=== PATIENT | male | born 1965 | race African-American/Black ===

== ENCOUNTER 2021-01-10 07:14 | Inpatient (IN) | payer OTHER ==
[~2021-01-10] VITALS: Ht 177.8 cm; Wt 96.3 kg
[2021-01-10] MEDS ORDERED: IV NORMAL SALINE 1000ML BAG 1,000 ML IV ONE ×2 (07:30→09:15)
[2021-01-10 07:43] LABS: BASO % 1 % (0-3); EOS # 0.1 x10^3/uL (0.0-0.7); EOS % 2 % (0-3); HEMATOCRIT 48.1 % (39.0-53.0); HEMOGLOBIN 16.2 g/dL (13.0-17.5); LYMPH # 1.4 x10^3/uL (1.0-4.8); LYMPH % 32 % (24-48); MEAN CORPUSCULAR HEMOGLOBIN 29 pg (25-35); MEAN CORPUSCULAR HGB CONC 34 g/dL (31-37); MEAN CORPUSCULAR VOLUME 87 fL (79-100); MONO # 0.6 x10^3/uL (0.0-1.1); MONO % 13 % (0-9); NEUT # 2.3 x10^3/uL (1.8-7.7); NEUT % 53 % (31-73); PLATELET COUNT 227 x10^3/uL (140-400); RED BLOOD COUNT 5.54 x10^6/uL (4.30-5.70); RED CELL DISTRIBUTION WIDTH 14.4 % (11.5-14.5); WHITE BLOOD COUNT 4.3 x10^3/uL (4.0-11.0)
--- NOTE | 2021-01-10 07:52 | PHYS DOC ---
Past Medical History Additional Past Medical Histor: spontaneous pneumonthorax Past Surgical History: Other Additional Past Surgical Histo: hernia repair, chest tube insertion Smoking Status: Never Smoker Alcohol Use: Occasionally General Adult EDM: Chief Complaint: ABNORMAL LABS HPI: HPI: 55-year-old male presents to the emergency department with abnormal lab work. I received a call from Dr. Killian, the patient's primary care physician, that the patient had abnormally elevated creatinine kinase. Per report, the patient has been taking statins at home as prescribed for a long period of time. He does not have any other symptoms that he complains about today. Reportedly the patient had a lab draw a few days ago that was elevated and had a repeat blood draw that was also elevated greater than 20,000. He does admit that he has been taking a supplement for the past 1.5 months from [facility]. The patient denies nausea, vomiting, fever, chills, chest pain, shortness of breath, abdominal pain, urinary symptoms, cough, recent trauma, or any other complaints. Review of Systems: Review of Systems: Constitutional: Denies fever or chills. Eyes: Denies change in vision, pain. HENT: Denies congestion or sore throat. Respiratory: Denies cough or shortness of breath. Cardiovascular: Denies chest pain or edema. GI: Denies abdominal pain, nausea. : Denies change in urination, dysuria. Musculoskeletal: Denies extremity pain, or trauma. Skin: Denies rash, skin change. Neurologic: Denies headache, focal weakness. All other systems reviewed as negative except for what was mentioned in the HPI. Heart Score: C/O Chest Pain: No Current Medications: Current Medications Medications (Trade) Dose Ordered Sig/Jolynn Start Time Stop Time Status Last Admin Dose Admin Sodium Chloride 1,000 ml @ 1,000 mls/hr 1X ONCE 01/10/21 07:30 01/10/21 08:29 01/10/21 07:47 1,000 MLS/HR Allergies: Allergies: Allergies Coded Allergies Type Severity Reaction Last Updated Verified Penicillins Allergy Intermediate HIVES 01/10/21 Yes Physical Exam: PE: Constitutional: No acute distress, non-toxic appearance. HENT: Atraumatic, bilateral external ears normal, nose normal. Eyes: PERRLA, EOMI, conjunctiva normal, no discharge. Neck: Normal range of motion, supple, no stridor. Cardiovascular: Heart rate regular rhythm. 2+ radial pulses Lungs & Thorax: No respiratory distress, symmetrical expansion. Bilateral breath sounds clear to auscultation Skin: Warm, dry. Extremities: No tenderness, no cyanosis, ROM intact, no edema. Neurologic: Alert and oriented X 3, normal motor function, normal sensory function, no focal deficits noted. Non ataxic gait. GCS 15. Psychologic: Affect normal, judgment normal, mood normal. Current Patient Data: Labs: Laboratory Tests Test 01/10/21 07:32 01/10/21 07:49 01/10/21 08:35 White Blood Count 4.3 x10^3/uL (4.0-11.0) Red Blood Count 5.54 x10^6/uL (4.30-5.70) Hemoglobin 16.2 g/dL (13.0-17.5) Hematocrit 48.1 % (39.0-53.0) Mean Corpuscular Volume 87 fL (79-100) Mean Corpuscular Hemoglobin 29 pg (25-35) Mean Corpuscular Hemoglobin Concent 34 g/dL (31-37) Red Cell Distribution Width 14.4 % (11.5-14.5) Platelet Count 227 x10^3/uL (140-400) Neutrophils (%) (Auto) 53 % (31-73) Lymphocytes (%) (Auto) 32 % (24-48) Monocytes (%) (Auto) 13 % (0-9) Eosinophils (%) (Auto) 2 % (0-3) Basophils (%) (Auto) 1 % (0-3) Neutrophils # (Auto) 2.3 x10^3/uL (1.8-7.7) Lymphocytes # (Auto) 1.4 x10^3/uL (1.0-4.8) Monocytes # (Auto) 0.6 x10^3/uL (0.0-1.1) Eosinophils # (Auto) 0.1 x10^3/uL (0.0-0.7) Basophils # (Auto) 0.0 x10^3/uL (0.0-0.2) Sodium Level 142 mmol/L (136-145) Potassium Level 3.7 mmol/L (3.5-5.1) Chloride Level 106 mmol/L (98-107) Carbon Dioxide Level 29 mmol/L (21-32) Anion Gap 7 (6-14) Blood Urea Nitrogen 22 mg/dL (8-26) Creatinine 1.4 mg/dL (0.7-1.3) Estimated GFR (Cockcroft-Gault) 63.7 BUN/Creatinine Ratio 16 (6-20) Glucose Level 96 mg/dL (70-99) Calcium Level 8.6 mg/dL (8.5-10.1) Total Bilirubin 0.5 mg/dL (0.2-1.0) Aspartate Amino Transf (AST/SGOT) 253 U/L (15-37) Alanine Aminotransferase (ALT/SGPT) 102 U/L (16-63) Alkaline Phosphatase 57 U/L (46-116) Creatine Kinase 98603 U/L (39-308) Total Protein 6.5 g/dL (6.4-8.2) Albumin 3.4 g/dL (3.4-5.0) Albumin/Globulin Ratio 1.1 (1.0-1.7) Urine Collection Type Void Urine Color Yellow Urine Clarity Clear Urine pH 7.0 (<5.0-8.0) Urine Specific [place] <=1.005 (1.000-1.030) Urine Protein Negative mg/dL (NEG-TRACE) Urine Glucose (UA) Negative mg/dL (NEG) Urine Ketones (Stick) Negative mg/dL (NEG) Urine Blood Negative (NEG) Urine Nitrite Negative (NEG) Urine Bilirubin Negative (NEG) Urine Urobilinogen Dipstick 0.2 mg/dL (0.2 mg/dL) Urine Leukocyte Esterase Negative (NEG) Urine RBC 0 /HPF (0-2) Urine WBC 0 /HPF (0-4) Urine Squamous Epithelial Cells Occ /LPF Urine Bacteria 0 /HPF (0-FEW) Vital Signs: Vital Signs Date Time Temp Pulse Resp B/P (MAP) Pulse Ox O2 Delivery O2 Flow Rate FiO2 01/10/21 07:23 98.8 70 18 146/85 100 Room Air 98.8 Course & Med Decision Making: Course & Med Decision Making Patient has rhabdomyolysis, minor acute kidney injury. Patient was given fluids in the emergency department 2 L. I discussed the case with Dr. Killian who admit the patient to the hospital. Plan to continue to hydrate. Patient is asymptomatic at this time. All questions answered to patient satisfaction he is amenable to the plan. His rhabdomyolysis likely secondary to his supplement that he is taking from [facility] Departure Departure Impression: Primary Impression: Rhabdomyolysis Additional Impression: SHARA (acute kidney injury) Disposition: ADMITTED INPATIENT Admitting Physician: Isabel Killian Condition: STABLE Referrals: ISABEL KILLIAN MD (PCP) LAVERN ISRAEL DO Jan 10, 2021 07:52
[2021-01-10 08:16] LABS: CALCIUM 8.6 mg/dL (8.5-10.1); CREATININE 1.4 mg/dL (0.7-1.3); GFR 63.7; POTASSIUM 3.7 mmol/L (3.5-5.1)
[2021-01-10 08:30] LABS: ALBUMIN 3.4 g/dL (3.4-5.0); ALBUMIN/GLOBULIN RATIO 1.1 (1.0-1.7); TOTAL BILIRUBIN 0.5 mg/dL (0.2-1.0); TOTAL PROTEIN 6.5 g/dL (6.4-8.2)
[2021-01-10 08:47] LABS: BILIRUBIN,URINE NEGATIVE (NEG); CLARITY,URINE CLEAR; COLOR,URINE YELLOW; NITRITE,URINE NEGATIVE (NEG); PROTEIN,URINE NEGATIVE (NEG-TRACE); UROBILINOGEN,URINE 0.2 mg/dL (0.2 mg/dL)
[2021-01-10 08:54] LABS: BACTERIA,URINE 0 /HPF (0-FEW); RBC,URINE 0 /HPF (0-2); WBC,URINE 0 /HPF (0-4)
[2021-01-10] MEDS ORDERED: METO-269 PO (10:24)
[2021-01-10] MEDS ORDERED: ATOR10TA60 PO (10:24)
[2021-01-10] MEDS ORDERED: CETI10CA11 PO (10:24)
[2021-01-10] MEDS ORDERED: VALA10008 PO (10:24)
[2021-01-10] MEDS ORDERED: HYDR25TA10 PO (10:24)
[2021-01-10] MEDS ORDERED: OMEP20CA16 PO (10:24)
[2021-01-10] MEDS ORDERED: AMLO-186 PO (10:24)
[2021-01-10] MEDS ORDERED: MONT10TA49 PO (10:24)
[2021-01-10] MEDS ORDERED: hydrALAZINE 20 MG/ML VIAL. IVP PRN (10:30)
--- NOTE | 2021-01-10 11:12 | PDOC ---
Provider Note Date of Service: DATE: 01/10/21 TIME: 11:12 Provider Note H&P [id number] Justifications for Admission Other Justification JANAE KILLIAN MD Jan 10, 2021 11:12
--- NOTE | 2021-01-10 12:24 | HP ---
ADMIT DATE: 01/10/2021 HISTORY OF PRESENT ILLNESS: This is a 55-year-old male who has a history of hypertension and hyperlipidemia and who has been on Lipitor, lisinopril, hydrochlorothiazide and amlodipine for quite some time, presented to the office on Thursday for a routine checkup. Labs were drawn. The patient was asymptomatic and did not have any complaints. His CPK came back at 12,481. His hemoglobin A1c was 5.8, LDL was 91. His creatinine was 1.35, BUN 24 and these are his baseline numbers for renal function. His actual renal function is better than previously. His hemoglobin was 16.2, WBC count 5.3. AST 146 and ALT 45. Because of the extremely high CPK, the patient was again advised to come to the office yesterday. The patient stated that he had started taking nutritional supplement Lean[employer] with [employer] at least for the last 1 month. I advised him to stop it. When the abnormal labs were noted, lisinopril and hydrochlorothiazide were also stopped. The patient was then advised to come to the office yesterday. Labs were redrawn yesterday and the lab called early this morning with his CPK level of 23,082. ALT had increased to 86 and AST to 294. Renal function did not change with creatinine of 1.35 and BUN of 27. The patient has remained completely asymptomatic. He did admit to doing heavy exercise for 40 minutes on Thursday. Because of the increasing CPK and worsening liver function, the patient was sent to the Emergency Room. In the Emergency Room today, creatinine is 1.4, BUN is 22, AST has increased to 253 and ALT has increased to 102 and CPK still very high at 19,793. Because of the extremely high CPK and worsening liver function, the patient is admitted for further evaluation and management. SYSTEMS REVIEW: The patient denies any recent fall, staying immobile, cold, cough, congestion, fever, chills, dysuria, hematuria, dark urine, body aches, muscle aches, weakness, fatigue, chills, nausea, vomiting, diarrhea, skin rash, flu-like symptoms or any other issues. PAST MEDICAL HISTORY: The patient has history of hypertension, erectile dysfunction, gastroesophageal reflux disease, herpes simplex, hyperlipidemia. PAST SURGICAL HISTORY: The patient had collapsed lung in 1991, hernia repair as a child. FAMILY HISTORY: Mother had hypertension. There is history of prostate cancer on his maternal uncle. SOCIAL HISTORY: No history of smoking, alcoholism or drug abuse. ALLERGIES: THE PATIENT IS ALLERGIC TO PENICILLIN. MEDICATIONS: The patient is on cetirizine 10 mg daily, diclofenac gel 1% topically twice daily, hydrochlorothiazide 25 mg daily, Lipitor 10 mg daily, lisinopril 20 mg daily, metoprolol succinate ER 50 mg daily, montelukast 10 mg daily, omeprazole 20 mg daily, tadalafil 20 mg as needed, Tylenol p.r.n., Valtrex 1 gram daily given by his Infectious Disease specialist. Lisinopril and hydrochlorothiazide have been on hold for about 36 hours. Lipitor has been also on hold for 36 hours. PHYSICAL EXAMINATION: GENERAL: The patient is a middle-aged male who is alert, oriented x 3 and not in acute distress. VITAL SIGNS: Temperature 98.8, pulse 70 per minute, respirations 18 per minute, blood pressure 146/85 mmHg. The patient is alert and oriented, not in acute distress. EYES: Pupils reacting to light. Conjunctivae pink. Sclerae are white. HENT: Unremarkable. SKIN: Warm and dry. There is no rash. NECK: Supple. JVP normal. No thyromegaly. Trachea midline. LUNGS: Clear. CARDIOVASCULAR: S1, S2 regular. ABDOMEN: Soft, nontender. No guarding, no rigidity. Bowel sounds present. EXTREMITIES: No edema, no cyanosis, no calf tenderness. CENTRAL NERVOUS SYSTEM: Alert and oriented. No weakness. Moves all extremities. LABORATORY FINDINGS: Sodium 142, potassium 3.7, BUN 22, creatinine 1.4, AST 253, ALT 102. Creatine kinase 19,793. WBC count 4.3, hemoglobin 16.2. Urinalysis clear. IMPRESSION: 1. Acute rhabdomyolysis with elevated CPK. The patient is asymptomatic. LFTs are increasing, likely due to rhabdomyolysis. 2. Renal insufficiency, unchanged. Has chronic kidney disease, stage 2. 3. Hypertension, not controlled. 4. Elevated LFTs, likely due to rhabdomyolysis. 5. History of erectile dysfunction. 6. History of herpes simplex infection. PLAN: Consult Dr. Robert for Nephrology evaluation and management. Consult Dr. Brooks for GI evaluation and management for elevated LFTs. Continue IV fluids, normal saline at 150 mL per hour. He was given 2 liters of normal saline in the Emergency Room. Follow up labs. Continue to hold lisinopril, hydrochlorothiazide, Lipitor and also hold Valtrex. For details, please refer to the orders. Condition and treatment discussed with the patient. TAWANDA/CARLIN/RADHA DR: TAWANDA/bridgette TID: [id number]
--- NOTE | 2021-01-10 13:01 | PDOC2 ---
GI CONSULT Date of Service: DATE: 01/10/21 TIME: 12:54 Reason For Consult: transaminitis HPI: HPI: 55 y/o male sent to ER w/ elevated CK noted on routine labs. On statin and nutritional supplement. Labs note elevated AST and ALT and we are asked to see. He feels well and denies GI symptoms. H/o reflux - asymptomatic on PPI. No dysphagia, n/v, abd pain, diarrhea, constipation, hematochezia, melena, change in appetite, or weight loss. No previous EGD. Reports normal colonoscopy age 55. No GB, liver, pancreas, or PUD history. No NSAIDs. He is feeling a little overwhelmed with all this information because he doesn't feel sick and is trying to remember all details to report back to girlfriend. PMH: PMH: HTN, HLD, ED, HSV, pneumothorax chest tube, inguinal hernia repair FH: Family History: No pertinent hx (denies GI history), Cancer (prostate), Hypertension Social History: Smoke: No ALCOHOL: occassional Drugs: None ROS: GEN: Denies fevers, chills, sweats HEENT: Denies blurred vision, sore throat CV: Denies chest pain RESP: Denies shortness of air, cough GI: Per HPI : Denies hematuria, dysuria ENDO: Denies weight changes NEURO: Denies confusion, dizziness MSK: Denies weakness, joint pain/swelling SKIN: Denies jaundice, pruritus Vitals: Vitals: Vital Signs Date Time Temp Pulse Resp B/P (MAP) Pulse Ox O2 Delivery O2 Flow Rate FiO2 01/10/21 09:41 54 18 156/70 (98) 99 Room Air 01/10/21 07:23 98.8 98.8 Labs: Labs: Laboratory Tests Test 01/10/21 07:32 01/10/21 07:49 01/10/21 08:35 White Blood Count 4.3 x10^3/uL (4.0-11.0) Red Blood Count 5.54 x10^6/uL (4.30-5.70) Hemoglobin 16.2 g/dL (13.0-17.5) Hematocrit 48.1 % (39.0-53.0) Mean Corpuscular Volume 87 fL (79-100) Mean Corpuscular Hemoglobin 29 pg (25-35) Mean Corpuscular Hemoglobin Concent 34 g/dL (31-37) Red Cell Distribution Width 14.4 % (11.5-14.5) Platelet Count 227 x10^3/uL (140-400) Neutrophils (%) (Auto) 53 % (31-73) Lymphocytes (%) (Auto) 32 % (24-48) Monocytes (%) (Auto) 13 % (0-9) Eosinophils (%) (Auto) 2 % (0-3) Basophils (%) (Auto) 1 % (0-3) Neutrophils # (Auto) 2.3 x10^3/uL (1.8-7.7) Lymphocytes # (Auto) 1.4 x10^3/uL (1.0-4.8) Monocytes # (Auto) 0.6 x10^3/uL (0.0-1.1) Eosinophils # (Auto) 0.1 x10^3/uL (0.0-0.7) Basophils # (Auto) 0.0 x10^3/uL (0.0-0.2) Sodium Level 142 mmol/L (136-145) Potassium Level 3.7 mmol/L (3.5-5.1) Chloride Level 106 mmol/L (98-107) Carbon Dioxide Level 29 mmol/L (21-32) Anion Gap 7 (6-14) Blood Urea Nitrogen 22 mg/dL (8-26) Creatinine 1.4 mg/dL (0.7-1.3) Estimated GFR (Cockcroft-Gault) 63.7 BUN/Creatinine Ratio 16 (6-20) Glucose Level 96 mg/dL (70-99) Calcium Level 8.6 mg/dL (8.5-10.1) Total Bilirubin 0.5 mg/dL (0.2-1.0) Aspartate Amino Transf (AST/SGOT) 253 U/L (15-37) Alanine Aminotransferase (ALT/SGPT) 102 U/L (16-63) Alkaline Phosphatase 57 U/L (46-116) Creatine Kinase 56682 U/L (39-308) Total Protein 6.5 g/dL (6.4-8.2) Albumin 3.4 g/dL (3.4-5.0) Albumin/Globulin Ratio 1.1 (1.0-1.7) Urine Collection Type Void Urine Color Yellow Urine Clarity Clear Urine pH 7.0 (<5.0-8.0) Urine Specific [place] <=1.005 (1.000-1.030) Urine Protein Negative mg/dL (NEG-TRACE) Urine Glucose (UA) Negative mg/dL (NEG) Urine Ketones (Stick) Negative mg/dL (NEG) Urine Blood Negative (NEG) Urine Nitrite Negative (NEG) Urine Bilirubin Negative (NEG) Urine Urobilinogen Dipstick 0.2 mg/dL (0.2 mg/dL) Urine Leukocyte Esterase Negative (NEG) Urine RBC 0 /HPF (0-2) Urine WBC 0 /HPF (0-4) Urine Squamous Epithelial Cells Occ /LPF Urine Bacteria 0 /HPF (0-FEW) Allergies: Coded Allergies: Penicillins (Verified Allergy, Intermediate, HIVES, 01/10/21) Medications: Current Medications Medications (Trade) Dose Ordered Sig/Jolynn Route PRN Reason Start Time Stop Time Status Last Admin Dose Admin Sodium Chloride 1,000 ml @ 1,000 mls/hr 1X ONCE IV 01/10/21 07:30 01/10/21 08:29 DC 01/10/21 07:47 Sodium Chloride 1,000 ml @ 1,000 mls/hr 1X ONCE IV 01/10/21 09:15 01/10/21 10:14 DC 01/10/21 09:14 PE: GEN: NAD HEENT: Atraumatic, PERRL LUNGS: CTAB HEART: RRR ABD: NABS, S/ND/NT EXTREMITY: No edema SKIN: No rashes, no jaundice NEURO/PSYCH: A & O 3 A/P: A/P: Rhabdo SHARA Elevated AST and ALT - 2/2 above GERD - controlled on PPI CRC screen - reportedly normal 5 years ago -- Monitor LFTs, consider US liver - will d/w Dr. Brooks. Continue PPI. SKIP MILLER Jan 10, 2021 13:01
[2021-01-10] MEDS: IV NORMAL SALINE 1000ML BAG 1,000 ML IV SCH ×3 (14:27→23:51)
[2021-01-10] MEDS: CETIRIZINE HCL 10 MG TABLET. PO SCH (14:28)
[2021-01-10] MEDS: PANTOPRAZOLE 40 MG TABLET.DR. PO SCH (14:28)
--- NOTE | 2021-01-10 16:01 | RAD ---
Exam: Right Upper Quadrant Ultrasound 01/10/2021 2:33 PM Indication: Reason: elevated LFTs / Spl. Instructions: / History: Technique: Multiple realtime grayscale sonographic images were obtained over the abdomen. Static imag es were submitted for interpretation. Comparisons: None available Findings: The pancreas is nonvisualized secondary overlying gas filled bowel. Visualized IVC is unremarkable. L iver is normal in size measuring 16 cm longitudinally. Portal vein is grossly patent with flow in the normal direction. Hepatic echotexture is grossly normal. No significant intra or extrahepatic biliar y dilatation is identified by ultrasound. The gallbladder demonstrates no evidence of wall thickening , stones, or sludge. The common bile duct measures approximately 4 to 5 mm in diameter. There is a 1. 6 cm cyst in the lateral right kidney. The right kidney is otherwise unremarkable in appearance measu ring 10.1 cm. IMPRESSION: 1. No sonographic evidence of acute intra-abdominal abnormality 2. 1.6 cm right renal cyst Electronically signed by: Reynaldo Tompkins MD (01/10/2021 3:59 PM) [id number]
--- NOTE | 2021-01-10 16:17 | RAD ---
AP and Lateral Views of the Chest 01/10/2021 1:20 PM Indication: Reason: Rhabdomyolysis,HTN / Spl. Instructions: / History: Comparison: None Findings: Calcified granuloma projects over the right lower lobe. There is no focal consolidation or infiltrate identified. The cardiomediastinal silhouette is within normal limits. There is no evidence of pneumothorax or pleural effusion. No acute osseous abnormalities are identified. Impression: No evidence of acute cardiopulmonary process. Electronically signed by: Reynaldo Tompkins MD (01/10/2021 4:14 PM) [id number]
[2021-01-10 19:00] VITALS: BP 132/81
[2021-01-10] MEDS: MONTELUKAST SODIUM 10 MG TABLET. PO SCH (21:56)
[2021-01-10 23:00] VITALS: BP 132/91
[2021-01-11 03:00] VITALS: BP 136/84
[2021-01-11 06:25] LABS: BASO % 1 % (0-3); EOS # 0.1 x10^3/uL (0.0-0.7); EOS % 3 % (0-3); HEMATOCRIT 43.2 % (39.0-53.0); HEMOGLOBIN 14.5 g/dL (13.0-17.5); LYMPH # 1.7 x10^3/uL (1.0-4.8); LYMPH % 38 % (24-48); MEAN CORPUSCULAR HEMOGLOBIN 30 pg (25-35); MEAN CORPUSCULAR HGB CONC 34 g/dL (31-37); MEAN CORPUSCULAR VOLUME 88 fL (79-100); MONO # 0.5 x10^3/uL (0.0-1.1); MONO % 11 % (0-9); NEUT # 2.1 x10^3/uL (1.8-7.7); NEUT % 48 % (31-73); PLATELET COUNT 171 x10^3/uL (140-400); RED BLOOD COUNT 4.91 x10^6/uL (4.30-5.70); RED CELL DISTRIBUTION WIDTH 14.3 % (11.5-14.5); WHITE BLOOD COUNT 4.3 x10^3/uL (4.0-11.0)
[2021-01-11] MEDS: IV NORMAL SALINE 1000ML BAG 1,000 ML IV SCH ×3 (06:32→19:09)
[2021-01-11 06:43] LABS: ALBUMIN 2.8 g/dL (3.4-5.0); CALCIUM 8.2 mg/dL (8.5-10.1); CREATININE 1.1 mg/dL (0.7-1.3); GFR 84.1; POTASSIUM 3.9 mmol/L (3.5-5.1); TOTAL BILIRUBIN 0.2 mg/dL (0.2-1.0); TOTAL PROTEIN 5.7 g/dL (6.4-8.2)
[2021-01-11 07:00] VITALS: BP 148/86
--- NOTE | 2021-01-11 09:24 | PDOC ---
IM PROGRESS NOTES- Subjective Subjective No complaints of pain or dyspnea. No complaints of weakness. Objective Vitals/I&O Vital Signs Date Time Temp Pulse Resp B/P (MAP) Pulse Ox O2 Delivery O2 Flow Rate FiO2 01/11/21 07:00 97.8 65 17 148/86 (106) 95 Room Air 97.8 I & O 0 01/10/21 01/10/21 01/11/21 15:00 23:00 07:00 Intake Total 1000 ml 250 ml Output Total 550 ml Balance 450 ml 250 ml Physical Exam Physical Exam General Appearance - alert and in no distress Chest - decreased breath sounds at bases Heart - S1 and S2 normal Abdomen - soft, non tender Neurological - alert and oriented Musculoskeletal - generalized weakness Extremities - no edema Labs Laboratory Tests Test 01/11/21 05:30 White Blood Count 4.3 x10^3/uL (4.0-11.0) Red Blood Count 4.91 x10^6/uL (4.30-5.70) Hemoglobin 14.5 g/dL (13.0-17.5) Hematocrit 43.2 % (39.0-53.0) Mean Corpuscular Volume 88 fL (79-100) Mean Corpuscular Hemoglobin 30 pg (25-35) Mean Corpuscular Hemoglobin Concent 34 g/dL (31-37) Red Cell Distribution Width 14.3 % (11.5-14.5) Platelet Count 171 x10^3/uL (140-400) Neutrophils (%) (Auto) 48 % (31-73) Lymphocytes (%) (Auto) 38 % (24-48) Monocytes (%) (Auto) 11 % (0-9) H Eosinophils (%) (Auto) 3 % (0-3) Basophils (%) (Auto) 1 % (0-3) Neutrophils # (Auto) 2.1 x10^3/uL (1.8-7.7) Lymphocytes # (Auto) 1.7 x10^3/uL (1.0-4.8) Monocytes # (Auto) 0.5 x10^3/uL (0.0-1.1) Eosinophils # (Auto) 0.1 x10^3/uL (0.0-0.7) Basophils # (Auto) 0.0 x10^3/uL (0.0-0.2) Sodium Level 143 mmol/L (136-145) Potassium Level 3.9 mmol/L (3.5-5.1) Chloride Level 111 mmol/L (98-107) H Carbon Dioxide Level 26 mmol/L (21-32) Anion Gap 6 (6-14) Blood Urea Nitrogen 21 mg/dL (8-26) Creatinine 1.1 mg/dL (0.7-1.3) Estimated GFR (Cockcroft-Gault) 84.1 BUN/Creatinine Ratio 19 (6-20) Glucose Level 94 mg/dL (70-99) Calcium Level 8.2 mg/dL (8.5-10.1) L Total Bilirubin 0.2 mg/dL (0.2-1.0) Aspartate Amino Transferase (AST) 180 U/L (15-37) H Alanine Aminotransferase (ALT) 87 U/L (16-63) H Alkaline Phosphatase 66 U/L (46-116) Creatine Kinase 73617 U/L (39-308) H Total Protein 5.7 g/dL (6.4-8.2) L Albumin 2.8 g/dL (3.4-5.0) L Albumin/Globulin Ratio 1.0 (1.0-1.7) Laboratory Tests 01/11/21 05:30 Laboratory Tests 01/11/21 05:30 Meds Current Medications Medications (Trade) Dose Ordered Sig/Jolynn Route PRN Reason Start Time Stop Time Status Last Admin Dose Admin Sodium Chloride 1,000 ml @ 150 mls/hr [id number] IV 01/10/21 09:30 01/11/21 09:29 01/11/21 06:32 Amlodipine Besylate (Norvasc) 5 mg DAILY PO 01/10/21 11:00 01/10/21 14:28 Montelukast Sodium (Singulair) 10 mg HS PO 01/10/21 21:00 01/10/21 21:56 Cetirizine HCl (ZyrTEC) 10 mg DAILY PO 01/10/21 11:00 01/10/21 14:28 Pantoprazole Sodium (Protonix) 40 mg DAILYAC PO 01/10/21 11:00 01/10/21 14:28 Assessment Assessment 1. Acute rhabdomyolysis with elevated CPK. The patient is asymptomatic. LFTs are increasing, likely due to rhabdomyolysis. 2. Renal insufficiency, unchanged. Has chronic kidney disease, stage 2. 3. Hypertension, not controlled. 4. Elevated LFTs, likely due to rhabdomyolysis. 5. History of erectile dysfunction. 6. History of herpes simplex infection. PLAN: Consult Dr. Robert for Nephrology evaluation and management. Consult Dr. Brooks for GI evaluation and management for elevated LFTs. Continue IV fluids, normal saline at 150 mL per hour. He was given 2 liters of normal saline in the Emergency Room. Follow up labs. Continue to hold lisinopril, hydrochlorothiazide, Lipitor and also hold Valtrex. For details, please refer to the orders. Condition and treatment discussed with the patient. Acute rhabdomyolysis-improving. CK is 10,744. Renal insufficiency-improving. Creatinine decreased to 1.1. Chest x-ray shows right lower lobe calcified granuloma. Elevated LFTs improving. Right upper quadrant sonogram is unremarkable except for 1.6 cm right renal cyst. Labs, x-ray findings and treatment discussed with the patient and the family. Plan Plan For more details regarding further plans, please refer to the orders. Justifications for Admission Other Justification JANAE KILLIAN MD Jan 11, 2021 09:24
[2021-01-11] MEDS: CETIRIZINE HCL 10 MG TABLET. PO SCH (09:34)
[2021-01-11] MEDS: PANTOPRAZOLE 40 MG TABLET.DR. PO SCH (09:34)
[2021-01-11] MEDS: METOPROLOL SUCC 24HR ER 50 MG TAB.ER.24H. PO SCH (09:35)
--- NOTE | 2021-01-11 09:44 | PDOC2 ---
CONSULT Date of Consult Date of Consult DATE: 01/11/21 TIME: 09:44 Reason for Consult Reason for Consult: SHARA, Rhabdo Identification/Chief Complaint Chief Complaint No complaints Source Source: Chart review, Patient History of Present Illness Reason for Visit: Patient is a 55-year-old AA male history of hypertension and hyperlipidemia and who has been on Lipitor, lisinopril, hydrochlorothiazide and amlodipine for many years , presented to the PCP 's office on Thursday for a routine checkup. Labs were drawn. The patient was asymptomatic and did not have any complaints. He was found to have abnormal labs with CPK 12,481, creatinine was 1.35, BUN 24 and these are his baseline numbers for renal function- per Primary's note, Patient reports he is not aware of any abnormal renal labs . Because of the extremely high CPK, he was advised hospitalization . He reports he has been taking nutritional supplement LeanFire with Slimvance at least for the last 1 month. Denies use of NSAID's, No othe supplements. Denies any urinary complaints No Excessive workout or heat exposure .Denies any recent fall, staying immobile, cold, cough, congestion, fever, chills, dysuria, hematuria, dark urine, body aches, muscle aches, weakness, fatigue, chills, nausea, vomiting, diarrhea, skin rash, flu-like symptoms or any other issues. Past Medical History Past Medical History The patient has history of hypertension, erectile dysfunction, gastroesophageal reflux disease, herpes simplex, hyperlipidemia. Past Surgical History Past Surgical History The patient had collapsed lung in 1991, hernia repair as a child. Family History Family History Mother had hypertension. There is history of prostate cancer on his maternal uncle. Social History Social History No history of smoking, alcoholism or drug abuse. No ALCOHOL: occassional Drugs: None Current Problem List Problem List Problems Medical Problems: (1) SHARA (acute kidney injury) Status: Acute (2) Rhabdomyolysis Status: Acute Current Medications Current Medications Current Medications Sodium Chloride 1,000 ml @ 1,000 mls/hr 1X ONCE IV Last administered on 01/10/21at 07:47; Start 01/10/21 at 07:30; Stop 01/10/21 at 08:29; Status DC Sodium Chloride 1,000 ml @ 1,000 mls/hr 1X ONCE IV Last administered on 01/10/21at 09:14; Start 01/10/21 at 09:15; Stop 01/10/21 at 10:14; Status DC Sodium Chloride 1,000 ml @ 150 mls/hr Q6H40M IV Last administered on 01/11/21at 06:32; Start 01/10/21 at 09:30; Stop 01/11/21 at 09:29; Status DC Amlodipine Besylate (Norvasc) 5 mg DAILY PO Last administered on 01/11/21at 09:34; Start 01/10/21 at 11:00 Montelukast Sodium (Singulair) 10 mg HS PO Last administered on 01/10/21at 21:56; Start 01/10/21 at 21:00 Cetirizine HCl (ZyrTEC) 10 mg DAILY PO Last administered on 01/11/21at 09:34; Start 01/10/21 at 11:00 Pantoprazole Sodium (Protonix) 40 mg DAILYAC PO Last administered on 01/11/21at 09:34; Start 01/10/21 at 11:00 Metoprolol Succinate (Toprol Xl) 50 mg DAILY PO Last administered on 01/11/21at 09:35; Start 01/11/21 at 09:00 Hydralazine HCl (Apresoline Inj) 10 mg PRN Q4HRS PRN IVP ELEVATED BP, SEE COMMENTS; Start 01/10/21 at 10:30 Active Scripts Active Reported Valacyclovir (Valacyclovir Hcl) 1,000 Mg Tablet 1,000 Mg PO DAILY Omeprazole 20 Mg Capsule.dr 20 Mg PO DAILY Montelukast Sodium Tablet (Montelukast Sodium) 10 Mg Tablet 10 Mg PO HS Toprol Xl (Metoprolol Succinate) 50 Mg Tab.er.24h PO DAILY Hydrochlorothiazide 25 Mg Tablet 25 Mg PO DAILY All Day Allergy (Cetirizine Hcl) 10 Mg Capsule 10 Mg PO DAILY Atorvastatin Calcium 10 Mg Tablet 10 Mg PO HS Amlodipine Besylate 5 Mg Tablet 5 Mg PO DAILY Allergies Allergies: Coded Allergies: Penicillins (Verified Allergy, Intermediate, HIVES, 01/10/21) ROS Review of System As per HPI, rest of the ROS is negative Physical Exam Physical Exam GENERAL:No acute distress. HENT: Unremarkable, OM moist, anicteric NECK SUpple LUNGS CTA, non labored SKIN: Warm and dry. no rash. CARDIOVASCULAR: S1, S2 regular. ABDOMEN: Soft, nontender. Bowel sounds present. EXTREMITIES: No edema, no cyanosis, no calf tenderness. CENTRAL NERVOUS SYSTEM: Alert and oriented. No weakness. Moves all extremities PSYCH Cooperative No De [place] O , No CVA or SP tenderness Vital Signs Vital Signs Date Time Temp Pulse Resp B/P (MAP) Pulse Ox O2 Delivery O2 Flow Rate FiO2 01/11/21 09:35 65 148/86 01/11/21 07:00 97.8 17 95 Room Air 97.8 Assessment & Plan SHARA - Vasomotor-Non Oliguric (per Pt, UOP not recorded) Improved with IVF , supportive care, maintain Hydration,avoid nephrotoxins Acute rhabdomyolysis - asymptomatic. Improving, Continue IV Hydration Chr Kidney disease stage 2 Rt Renal cyst 1.6 cm Hypertension, not controlled- On HCTZ/Lisinopril and amlodipine for many years Elevated LFTs, likely due to rhabdomyolysis. Labs Labs Laboratory Tests Test 01/10/21 07:32 01/10/21 07:49 01/10/21 08:35 01/11/21 05:30 White Blood Count 4.3 x10^3/uL (4.0-11.0) 4.3 x10^3/uL (4.0-11.0) Red Blood Count 5.54 x10^6/uL (4.30-5.70) 4.91 x10^6/uL (4.30-5.70) Hemoglobin 16.2 g/dL (13.0-17.5) 14.5 g/dL (13.0-17.5) Hematocrit 48.1 % (39.0-53.0) 43.2 % (39.0-53.0) Mean Corpuscular Volume 87 fL (79-100) 88 fL (79-100) Mean Corpuscular Hemoglobin 29 pg (25-35) 30 pg (25-35) Mean Corpuscular Hemoglobin Concent 34 g/dL (31-37) 34 g/dL (31-37) Red Cell Distribution Width 14.4 % (11.5-14.5) 14.3 % (11.5-14.5) Platelet Count 227 x10^3/uL (140-400) 171 x10^3/uL (140-400) Neutrophils (%) (Auto) 53 % (31-73) 48 % (31-73) Lymphocytes (%) (Auto) 32 % (24-48) 38 % (24-48) Monocytes (%) (Auto) 13 % (0-9) 11 % (0-9) Eosinophils (%) (Auto) 2 % (0-3) 3 % (0-3) Basophils (%) (Auto) 1 % (0-3) 1 % (0-3) Neutrophils # (Auto) 2.3 x10^3/uL (1.8-7.7) 2.1 x10^3/uL (1.8-7.7) Lymphocytes # (Auto) 1.4 x10^3/uL (1.0-4.8) 1.7 x10^3/uL (1.0-4.8) Monocytes # (Auto) 0.6 x10^3/uL (0.0-1.1) 0.5 x10^3/uL (0.0-1.1) Eosinophils # (Auto) 0.1 x10^3/uL (0.0-0.7) 0.1 x10^3/uL (0.0-0.7) Basophils # (Auto) 0.0 x10^3/uL (0.0-0.2) 0.0 x10^3/uL (0.0-0.2) Sodium Level 142 mmol/L (136-145) 143 mmol/L (136-145) Potassium Level 3.7 mmol/L (3.5-5.1) 3.9 mmol/L (3.5-5.1) Chloride Level 106 mmol/L (98-107) 111 mmol/L (98-107) Carbon Dioxide Level 29 mmol/L (21-32) 26 mmol/L (21-32) Anion Gap 7 (6-14) 6 (6-14) Blood Urea Nitrogen 22 mg/dL (8-26) 21 mg/dL (8-26) Creatinine 1.4 mg/dL (0.7-1.3) 1.1 mg/dL (0.7-1.3) Estimated GFR (Cockcroft-Gault) 63.7 84.1 BUN/Creatinine Ratio 16 (6-20) 19 (6-20) Glucose Level 96 mg/dL (70-99) 94 mg/dL (70-99) Calcium Level 8.6 mg/dL (8.5-10.1) 8.2 mg/dL (8.5-10.1) Total Bilirubin 0.5 mg/dL (0.2-1.0) 0.2 mg/dL (0.2-1.0) Aspartate Amino Transf (AST/SGOT) 253 U/L (15-37) 180 U/L (15-37) Alanine Aminotransferase (ALT/SGPT) 102 U/L (16-63) 87 U/L (16-63) Alkaline Phosphatase 57 U/L (46-116) 66 U/L (46-116) Creatine Kinase 73964 U/L (39-308) 75329 U/L (39-308) Total Protein 6.5 g/dL (6.4-8.2) 5.7 g/dL (6.4-8.2) Albumin 3.4 g/dL (3.4-5.0) 2.8 g/dL (3.4-5.0) Albumin/Globulin Ratio 1.1 (1.0-1.7) 1.0 (1.0-1.7) Urine Collection Type Void Urine Color Yellow Urine Clarity Clear Urine pH 7.0 (<5.0-8.0) Urine Specific [place] <=1.005 (1.000-1.030) Urine Protein Negative mg/dL (NEG-TRACE) Urine Glucose (UA) Negative mg/dL (NEG) Urine Ketones (Stick) Negative mg/dL (NEG) Urine Blood Negative (NEG) Urine Nitrite Negative (NEG) Urine Bilirubin Negative (NEG) Urine Urobilinogen Dipstick 0.2 mg/dL (0.2 mg/dL) Urine Leukocyte Esterase Negative (NEG) Urine RBC 0 /HPF (0-2) Urine WBC 0 /HPF (0-4) Urine Squamous Epithelial Cells Occ /LPF Urine Bacteria 0 /HPF (0-FEW) Laboratory Tests Test 01/11/21 05:30 White Blood Count 4.3 x10^3/uL (4.0-11.0) Red Blood Count 4.91 x10^6/uL (4.30-5.70) Hemoglobin 14.5 g/dL (13.0-17.5) Hematocrit 43.2 % (39.0-53.0) Mean Corpuscular Volume 88 fL (79-100) Mean Corpuscular Hemoglobin 30 pg (25-35) Mean Corpuscular Hemoglobin Concent 34 g/dL (31-37) Red Cell Distribution Width 14.3 % (11.5-14.5) Platelet Count 171 x10^3/uL (140-400) Neutrophils (%) (Auto) 48 % (31-73) Lymphocytes (%) (Auto) 38 % (24-48) Monocytes (%) (Auto) 11 % (0-9) Eosinophils (%) (Auto) 3 % (0-3) Basophils (%) (Auto) 1 % (0-3) Neutrophils # (Auto) 2.1 x10^3/uL (1.8-7.7) Lymphocytes # (Auto) 1.7 x10^3/uL (1.0-4.8) Monocytes # (Auto) 0.5 x10^3/uL (0.0-1.1) Eosinophils # (Auto) 0.1 x10^3/uL (0.0-0.7) Basophils # (Auto) 0.0 x10^3/uL (0.0-0.2) Sodium Level 143 mmol/L (136-145) Potassium Level 3.9 mmol/L (3.5-5.1) Chloride Level 111 mmol/L (98-107) Carbon Dioxide Level 26 mmol/L (21-32) Anion Gap 6 (6-14) Blood Urea Nitrogen 21 mg/dL (8-26) Creatinine 1.1 mg/dL (0.7-1.3) Estimated GFR (Cockcroft-Gault) 84.1 BUN/Creatinine Ratio 19 (6-20) Glucose Level 94 mg/dL (70-99) Calcium Level 8.2 mg/dL (8.5-10.1) Total Bilirubin 0.2 mg/dL (0.2-1.0) Aspartate Amino Transf (AST/SGOT) 180 U/L (15-37) Alanine Aminotransferase (ALT/SGPT) 87 U/L (16-63) Alkaline Phosphatase 66 U/L (46-116) Creatine Kinase 37331 U/L (39-308) Total Protein 5.7 g/dL (6.4-8.2) Albumin 2.8 g/dL (3.4-5.0) Albumin/Globulin Ratio 1.0 (1.0-1.7) Review All relevant outside records, renal labs, imaging studies, telemetry/EKG's were reviewed. Images Images Exam: Right Upper Quadrant Ultrasound 01/10/2021 2:33 PM Indication: Reason: elevated LFTs / Spl. Instructions: / History: Technique: Multiple realtime grayscale sonographic images were obtained over the abdomen. Static images were submitted for interpretation. Comparisons: None available Findings: The pancreas is nonvisualized secondary overlying gas filled bowel. Visualized IVC is unremarkable. Liver is normal in size measuring 16 cm longitudinally. Portal vein is grossly patent with flow in the normal direction. Hepatic echotexture is grossly normal. No significant intra or extrahepatic biliary dilatation is identified by ultrasound. The gallbladder demonstrates no evidence of wall thickening, stones, or sludge. The common bile duct measures approximately 4 to 5 mm in diameter. There is a 1.6 cm cyst in the lateral right kidney. The right kidney is otherwise unremarkable in appearance measuring 10.1 cm. IMPRESSION: 1. No sonographic evidence of acute intra-abdominal abnormality 2. 1.6 cm right renal cyst JACOBY RUTLEDGE MD Jan 11, 2021 09:44
[2021-01-11 11:00] VITALS: BP 141/74
--- NOTE | 2021-01-11 13:41 | PDOC ---
G I PROGRESS NOTE Subjective Has no complaints for me. Physical Exam Lungs clear anteriorly. RRR Abdomen soft, not tender not distended. Review of Relevant I have reviewed the following items analy (where applicable) has been applied. Labs Laboratory Tests Test 01/10/21 07:32 01/10/21 07:49 01/10/21 08:35 01/11/21 05:30 White Blood Count 4.3 x10^3/uL (4.0-11.0) 4.3 x10^3/uL (4.0-11.0) Red Blood Count 5.54 x10^6/uL (4.30-5.70) 4.91 x10^6/uL (4.30-5.70) Hemoglobin 16.2 g/dL (13.0-17.5) 14.5 g/dL (13.0-17.5) Hematocrit 48.1 % (39.0-53.0) 43.2 % (39.0-53.0) Mean Corpuscular Volume 87 fL (79-100) 88 fL (79-100) Mean Corpuscular Hemoglobin 29 pg (25-35) 30 pg (25-35) Mean Corpuscular Hemoglobin Concent 34 g/dL (31-37) 34 g/dL (31-37) Red Cell Distribution Width 14.4 % (11.5-14.5) 14.3 % (11.5-14.5) Platelet Count 227 x10^3/uL (140-400) 171 x10^3/uL (140-400) Neutrophils (%) (Auto) 53 % (31-73) 48 % (31-73) Lymphocytes (%) (Auto) 32 % (24-48) 38 % (24-48) Monocytes (%) (Auto) 13 % (0-9) 11 % (0-9) Eosinophils (%) (Auto) 2 % (0-3) 3 % (0-3) Basophils (%) (Auto) 1 % (0-3) 1 % (0-3) Neutrophils # (Auto) 2.3 x10^3/uL (1.8-7.7) 2.1 x10^3/uL (1.8-7.7) Lymphocytes # (Auto) 1.4 x10^3/uL (1.0-4.8) 1.7 x10^3/uL (1.0-4.8) Monocytes # (Auto) 0.6 x10^3/uL (0.0-1.1) 0.5 x10^3/uL (0.0-1.1) Eosinophils # (Auto) 0.1 x10^3/uL (0.0-0.7) 0.1 x10^3/uL (0.0-0.7) Basophils # (Auto) 0.0 x10^3/uL (0.0-0.2) 0.0 x10^3/uL (0.0-0.2) Sodium Level 142 mmol/L (136-145) 143 mmol/L (136-145) Potassium Level 3.7 mmol/L (3.5-5.1) 3.9 mmol/L (3.5-5.1) Chloride Level 106 mmol/L (98-107) 111 mmol/L (98-107) Carbon Dioxide Level 29 mmol/L (21-32) 26 mmol/L (21-32) Anion Gap 7 (6-14) 6 (6-14) Blood Urea Nitrogen 22 mg/dL (8-26) 21 mg/dL (8-26) Creatinine 1.4 mg/dL (0.7-1.3) 1.1 mg/dL (0.7-1.3) Estimated GFR (Cockcroft-Gault) 63.7 84.1 BUN/Creatinine Ratio 16 (6-20) 19 (6-20) Glucose Level 96 mg/dL (70-99) 94 mg/dL (70-99) Calcium Level 8.6 mg/dL (8.5-10.1) 8.2 mg/dL (8.5-10.1) Total Bilirubin 0.5 mg/dL (0.2-1.0) 0.2 mg/dL (0.2-1.0) Aspartate Amino Transf (AST/SGOT) 253 U/L (15-37) 180 U/L (15-37) Alanine Aminotransferase (ALT/SGPT) 102 U/L (16-63) 87 U/L (16-63) Alkaline Phosphatase 57 U/L (46-116) 66 U/L (46-116) Creatine Kinase 58019 U/L (39-308) 37927 U/L (39-308) Total Protein 6.5 g/dL (6.4-8.2) 5.7 g/dL (6.4-8.2) Albumin 3.4 g/dL (3.4-5.0) 2.8 g/dL (3.4-5.0) Albumin/Globulin Ratio 1.1 (1.0-1.7) 1.0 (1.0-1.7) Urine Collection Type Void Urine Color Yellow Urine Clarity Clear Urine pH 7.0 (<5.0-8.0) Urine Specific [place] <=1.005 (1.000-1.030) Urine Protein Negative mg/dL (NEG-TRACE) Urine Glucose (UA) Negative mg/dL (NEG) Urine Ketones (Stick) Negative mg/dL (NEG) Urine Blood Negative (NEG) Urine Nitrite Negative (NEG) Urine Bilirubin Negative (NEG) Urine Urobilinogen Dipstick 0.2 mg/dL (0.2 mg/dL) Urine Leukocyte Esterase Negative (NEG) Urine RBC 0 /HPF (0-2) Urine WBC 0 /HPF (0-4) Urine Squamous Epithelial Cells Occ /LPF Urine Bacteria 0 /HPF (0-FEW) Hepatitis A IgM Antibody Nonreactive (Nonreactive) Hepatitis B Surface Antigen Nonreactive (Nonreactive) Hepatitis B Core IgM Antibody Nonreactive (Nonreactive) Hepatitis C IgG Antibody Nonreactive (Nonreactive) Laboratory Tests Test 01/11/21 05:30 White Blood Count 4.3 x10^3/uL (4.0-11.0) Red Blood Count 4.91 x10^6/uL (4.30-5.70) Hemoglobin 14.5 g/dL (13.0-17.5) Hematocrit 43.2 % (39.0-53.0) Mean Corpuscular Volume 88 fL (79-100) Mean Corpuscular Hemoglobin 30 pg (25-35) Mean Corpuscular Hemoglobin Concent 34 g/dL (31-37) Red Cell Distribution Width 14.3 % (11.5-14.5) Platelet Count 171 x10^3/uL (140-400) Neutrophils (%) (Auto) 48 % (31-73) Lymphocytes (%) (Auto) 38 % (24-48) Monocytes (%) (Auto) 11 % (0-9) Eosinophils (%) (Auto) 3 % (0-3) Basophils (%) (Auto) 1 % (0-3) Neutrophils # (Auto) 2.1 x10^3/uL (1.8-7.7) Lymphocytes # (Auto) 1.7 x10^3/uL (1.0-4.8) Monocytes # (Auto) 0.5 x10^3/uL (0.0-1.1) Eosinophils # (Auto) 0.1 x10^3/uL (0.0-0.7) Basophils # (Auto) 0.0 x10^3/uL (0.0-0.2) Sodium Level 143 mmol/L (136-145) Potassium Level 3.9 mmol/L (3.5-5.1) Chloride Level 111 mmol/L (98-107) Carbon Dioxide Level 26 mmol/L (21-32) Anion Gap 6 (6-14) Blood Urea Nitrogen 21 mg/dL (8-26) Creatinine 1.1 mg/dL (0.7-1.3) Estimated GFR (Cockcroft-Gault) 84.1 BUN/Creatinine Ratio 19 (6-20) Glucose Level 94 mg/dL (70-99) Calcium Level 8.2 mg/dL (8.5-10.1) Total Bilirubin 0.2 mg/dL (0.2-1.0) Aspartate Amino Transf (AST/SGOT) 180 U/L (15-37) Alanine Aminotransferase (ALT/SGPT) 87 U/L (16-63) Alkaline Phosphatase 66 U/L (46-116) Creatine Kinase 82083 U/L (39-308) Total Protein 5.7 g/dL (6.4-8.2) Albumin 2.8 g/dL (3.4-5.0) Albumin/Globulin Ratio 1.0 (1.0-1.7) Hepatitis A IgM Antibody Nonreactive (Nonreactive) Hepatitis B Surface Antigen Nonreactive (Nonreactive) Hepatitis B Core IgM Antibody Nonreactive (Nonreactive) Hepatitis C IgG Antibody Nonreactive (Nonreactive) Enzymes improving. Vitals/I & O Vital Sign - Last 24 Hours 01/10/21 01/10/21 01/10/21 01/10/21 14:01 14:25 14:28 14:31 Pulse 56 54 56 60 Resp 16 16 18 B/P (MAP) 165/86 (112) 158/82 (107) 158/82 160/88 (112) Pulse Ox 99 98 99 O2 Delivery Room Air Room Air Room Air 01/10/21 01/10/21 01/10/21 01/10/21 15:01 15:31 16:01 16:31 Pulse 50 58 56 52 Resp 14 16 16 15 B/P (MAP) 161/82 (108) 179/85 (116) 200/102 (134) 161/86 (111) Pulse Ox 99 99 98 99 O2 Delivery Room Air Room Air Room Air Room Air 01/10/21 01/10/21 01/11/21 01/11/21 19:00 23:00 03:00 07:00 Temp 98.2 97.8 97.7 97.8 98.2 97.8 97.7 97.8 Pulse 58 60 62 65 Resp 18 18 18 17 B/P (MAP) 132/81 (98) 132/91 (105) 136/84 (101) 148/86 (106) Pulse Ox 98 99 99 95 O2 Delivery Room Air 01/11/21 01/11/21 01/11/21 01/11/21 09:34 09:35 11:00 12:36 Temp 98.0 98.0 Pulse 65 65 51 Resp 18 B/P (MAP) 148/86 148/86 141/74 (96) Pulse Ox 98 O2 Delivery Room Air Room Air Intake and Output 01/10/21 01/10/21 01/11/21 15:00 23:00 07:00 Intake Total 1000 ml 250 ml Output Total 550 ml Balance 450 ml 250 ml Problem List Problems Medical Problems: (1) SHARA (acute kidney injury) Status: Acute (2) Rhabdomyolysis Status: Acute Assessment Rhabdomyolysis--explains much if not all of the syndrome. No liver issues identifiable. Plan of Care Note Continue evaluation. Justicifation of Admission Dx: Justifications for Admission: Justification of Admission Dx: Yes (rhabdomyolysis) MOHIT SHORT MD Jan 11, 2021 13:41
[2021-01-11 15:00] VITALS: BP 148/93
--- NOTE | 2021-01-11 16:24 | NUR ---
SS following for discharge planning. SS reviewed pt chart and discussed with pt RN. Pt is from home and is currently on room air. GI and Nephrology consulted. SS will continue to follow for discharge planning.
[2021-01-11 19:00] VITALS: BP 138/86
[2021-01-11] MEDS: MONTELUKAST SODIUM 10 MG TABLET. PO SCH (21:02)
[2021-01-11 23:00] VITALS: BP 127/84
[2021-01-12] MEDS: IV NORMAL SALINE 1000ML BAG 1,000 ML IV SCH ×2 (01:49→08:47)
[2021-01-12 03:00] VITALS: BP 144/92
[2021-01-12 07:00] VITALS: BP 160/100
[2021-01-12] MEDS: PANTOPRAZOLE 40 MG TABLET.DR. PO SCH (08:51)
[2021-01-12] MEDS: CETIRIZINE HCL 10 MG TABLET. PO SCH (08:51)
[2021-01-12] MEDS: METOPROLOL SUCC 24HR ER 50 MG TAB.ER.24H. PO SCH (09:00)
[2021-01-12] MEDS ORDERED: AMLO-187 PO (10:08)
--- NOTE | 2021-01-12 10:13 | PDOC3 ---
IM DISCHARGE SUMMARY Date of Admission Date of Admission Date of Admission: Jan 10, 2021 at 09:08 Date of Discharge Date of Discharge January 13, 2021 Primary Diagnosis Primary Diagnosis 1. Acute rhabdomyolysis with elevated CPK. The patient is asymptomatic. LFTs are increasing, likely due to rhabdomyolysis. 2. Renal insufficiency, unchanged. Has chronic kidney disease, stage 2. 3. Hypertension, not controlled. 4. Elevated LFTs, likely due to rhabdomyolysis. 5. History of erectile dysfunction. 6. History of herpes simplex infection. Consults Consults Armando Brooks MD; Donte Robert MD; Alanis Bhatt MD Brief hospital course Brief hospital course This is a 55-year-old male who has a history of hypertension and hyperlipidemia and who has been on Lipitor, lisinopril, hydrochlorothiazide and amlodipine for quite some time, presented to the office on Thursday for a routine checkup. Labs were drawn. The patient was asymptomatic and did not have any complaints. His CPK came back at 12,481. His hemoglobin A1c was 5.8, LDL was 91. His creatinine was 1.35, BUN 24 and these are his baseline numbers for renal function. His actual renal function is better than previously. His hemoglobin was 16.2, WBC count 5.3. AST 146 and ALT 45. Because of the extremely high CPK, the patient was again advised to come to the office yesterday. The patient stated that he had started taking nutritional supplement LeanFire with Slimvance at least for the last 1 month. I advised him to stop it. When the abnormal labs were noted, lisinopril and hydrochlorothiazide were also stopped. The patient was then advised to come to the office yesterday. Labs were redrawn yesterday and the lab called early this morning with his CPK level of 23,082. ALT had increased to 86 and AST to 294. Renal function did not change with creatinine of 1.35 and BUN of 27. The patient has remained completely asymptomatic. He did admit to doing heavy exercise for 40 minutes on Thursday. Because of the increasing CPK and worsening liver function, the patient was sent to the Emergency Room. In the Emergency Room today, creatinine is 1.4, BUN is 22, AST has increased to 253 and ALT has increased to 102 and CPK still very high at 19,793. Because of the extremely high CPK and worsening liver function, the patient is admitted for further evaluation and management. For more details regarding the past history, family history, social history, surgical history and other details, please refer to the H&P. Consult Dr. Robert for Nephrology evaluation and management. Consult Dr. Brooks for GI evaluation and management for elevated LFTs. Continue IV fluids, normal saline at 150 mL per hour. He was given 2 liters of normal saline in the Emergency Room. Follow up labs. Continue to hold lisinopril, hydrochlorothiazide, Lipitor and also hold Valtrex. For details, please refer to the orders. Condition and treatment discussed with the patient. Acute rhabdomyolysis-improving. Renal insufficiency-improving. Creatinine decreased to 1.1. Chest x-ray shows right lower lobe calcified granuloma. Elevated LFTs improving. Right upper quadrant sonogram is unremarkable except for 1.6 cm right renal cyst. Labs, x-ray findings and treatment discussed with the patient and the family. Clinically patient is doing well. Blood pressure is elevated. Increase amlod ipine to 10 mg daily. LFts are improving. Ck decreased to 4103.Patient was then discharge home. See me in the office in 3 days. Continue to hold lisinopril, hydrochlorothiazide, Lipitor and Valtrex at home. Medications Medications reviewed and reconciled for discharge. Home Meds Active Scripts Amlodipine Besylate (AMLODIPINE BESYLATE) 10 Mg Tablet, 10 MG PO DAILY for HTN for 30 Days, #30 TAB 5 Refills Prov:JANAE KILLIAN MD 01/12/21 Reported Medications Omeprazole (OMEPRAZOLE) 20 Mg Capsule.dr, 20 MG PO DAILY 01/10/21 Montelukast Sodium (MONTELUKAST SODIUM TABLET ) 10 Mg Tablet, 10 MG PO HS 01/10/21 Metoprolol Succinate (TOPROL XL) 50 Mg Tab.er.24h, PO DAILY 01/10/21 Cetirizine Hcl (ALL DAY ALLERGY) 10 Mg Capsule, 10 MG PO DAILY 01/10/21 Discontinued Reported Medications Valacyclovir Hcl (VALACYCLOVIR) 1,000 Mg Tablet, 1000 MG PO DAILY 01/10/21 Hydrochlorothiazide (Hydrochlorothiazide) 25 Mg Tablet, 25 MG PO DAILY 01/10/21 Atorvastatin Calcium (ATORVASTATIN CALCIUM) 10 Mg Tablet, 10 MG PO HS 01/10/21 Amlodipine Besylate (AMLODIPINE BESYLATE) 5 Mg Tablet, 5 MG PO DAILY 01/10/21 Allergy Allergies Coded Allergies Type Severity Reaction Last Updated Verified Penicillins Allergy Intermediate HIVES 01/10/21 Yes Follow up in 3 days. DISPOSITION: Home Comments Discharge Management - 35 minutes. For other details please refer to discharge instructions Justicifation of Admission Dx: Justifications for Admission: Justification of Admission Dx: Yes (rhabdomyolysis) JANAE KILLIAN MD Jan 12, 2021 10:13
--- NOTE | 2021-01-12 10:14 | DISCH ---
DISCHARGE INSTRUCTIONS Condition on Discharge Condition on Discharge: Stable Activity After Discharge Activity Instructions for Disc: Avoid exertion Diet after Discharge Diet after Discharge: Cardiac Checks after Discharge Checks after discharge: Check blood press - daily Contacting the [facility] after DC Call your doctor for: Concerns you may have Follow-Up Follow up with: Dr. Janae Killian in 3 days. JANAE KILLIAN MD Jan 12, 2021 10:14
[2021-01-12 11:15] LABS: ALBUMIN 3.1 g/dL (3.4-5.0); ALBUMIN/GLOBULIN RATIO 0.9 (1.0-1.7); CALCIUM 8.4 mg/dL (8.5-10.1); CREATININE 1.1 mg/dL (0.7-1.3); GFR 84.1; TOTAL BILIRUBIN 0.3 mg/dL (0.2-1.0); TOTAL PROTEIN 6.4 g/dL (6.4-8.2)
[2021-01-12 11:36] VITALS: BP 163/99
[2021-01-12 15:00] VITALS: BP 147/93
[2021-01-12] MEDS ORDERED: ACETAMINOPHEN 325 MG TABLET. PO PRN (16:00)
[2021-01-12] MEDS ORDERED: IBUPROFEN 400 MG TABLET. PO ONE (16:30)
[2021-01-12 19:00] VITALS: BP 145/83
[2021-01-12] MEDS: MONTELUKAST SODIUM 10 MG TABLET. PO SCH (20:53)
[2021-01-12 23:00] VITALS: BP 143/83
[2021-01-13] MEDS: IV NORMAL SALINE 1000ML BAG 1,000 ML IV SCH ×2 (00:38→10:05)
[2021-01-13 03:00] VITALS: BP 139/84
[2021-01-13 07:00] VITALS: BP 148/88
[2021-01-13 07:15] LABS: ALBUMIN 3.1 g/dL (3.4-5.0); CALCIUM 8.2 mg/dL (8.5-10.1); CREATININE 1.1 mg/dL (0.7-1.3); GFR 84.1; POTASSIUM 3.8 mmol/L (3.5-5.1); TOTAL BILIRUBIN 0.4 mg/dL (0.2-1.0); TOTAL PROTEIN 6.3 g/dL (6.4-8.2)
[2021-01-13] MEDS: PANTOPRAZOLE 40 MG TABLET.DR. PO SCH (08:38)
[2021-01-13] MEDS: CETIRIZINE HCL 10 MG TABLET. PO SCH (08:38)
[2021-01-13] MEDS: METOPROLOL SUCC 24HR ER 50 MG TAB.ER.24H. PO SCH (08:39)
[2021-01-13] MEDS ORDERED: IBUPROFEN 400 MG TABLET. PO ONE (08:45)
[2021-01-13 09:45] VITALS: BP 148/88
--- NOTE | 2021-01-13 10:54 | PDOC ---
PROGRESS NOTES Date of Service: DATE: 01/13/21 TIME: 10:52 Subjective Subjective no new problems Objective Objective Vital Signs Date Time Temp Pulse Resp B/P (MAP) Pulse Ox O2 Delivery O2 Flow Rate FiO2 01/13/21 09:45 Intake and Output 01/13/21 07:00 Intake Total 1800 ml Output Total 1200 ml Balance 600 ml Intake Oral 1800 ml Output Urine Total 1200 ml # Voids 2 Physical Exam Abdomen: Soft Heart: Regular rate, Normal S1 Extremities: No clubbing General: Alert HEENT: PERRLA Lungs: Clear to auscultation MUSCULOSKELETAL: No deformity Neck: No JVD Neuro: Normal speech Psych/Mental Status: Mental status NL Skin: No rashes Diagnosis Problem List Problems Medical Problems: (1) SHARA (acute kidney injury) Status: Acute (2) Rhabdomyolysis Status: Acute Assessment Assessment 1. Acute rhabdomyolysis with elevated CPK. The patient is asymptomatic. LFTs are increasing, likely due to rhabdomyolysis. 2. Renal insufficiency, unchanged. Has chronic kidney disease, stage 2. 3. Hypertension, not controlled. 4. Elevated LFTs, likely due to rhabdomyolysis. 5. History of erectile dysfunction. 6. History of herpes simplex infection. PLAN: CK 4000 ,down d/c home today f/u ck levels office in 2 days kidney function normal. Consult Dr. Robert for Nephrology evaluation and management. Consult Dr. Brooks for GI evaluation and management for elevated LFTs. Continue IV fluids, normal saline at 150 mL per hour. He was given 2 liters of normal saline in the Emergency Room. Follow up labs. Continue to hold lisinopril, hydrochlorothiazide, Lipitor and also hold Valtrex. For details, please refer to the orders. Condition and treatment discussed with the patient. Acute rhabdomyolysis-improving. CK is 10,744. Renal insufficiency-improving. Creatinine decreased to 1.1. Chest x-ray shows right lower lobe calcified granuloma. Elevated LFTs improving. Right upper quadrant sonogram is unremarkable except for 1.6 cm right renal cyst. Labs, x-ray findings and treatment discussed with the patient and the family. Plan Plan of Care Problems Medical Problems: (1) SHARA (acute kidney injury) Status: Acute (2) Rhabdomyolysis Status: Acute Comment Review of Relevant I have reviewed the following items analy (where applicable) has been applied. Labs Laboratory Tests Test 01/13/21 05:30 Sodium Level 141 mmol/L (136-145) Potassium Level 3.8 mmol/L (3.5-5.1) Chloride Level 108 mmol/L (98-107) Carbon Dioxide Level 27 mmol/L (21-32) Anion Gap 6 (6-14) Blood Urea Nitrogen 11 mg/dL (8-26) Creatinine 1.1 mg/dL (0.7-1.3) Estimated GFR (Cockcroft-Gault) 84.1 BUN/Creatinine Ratio 10 (6-20) Glucose Level 90 mg/dL (70-99) Calcium Level 8.2 mg/dL (8.5-10.1) Total Bilirubin 0.4 mg/dL (0.2-1.0) Aspartate Amino Transf (AST/SGOT) 95 U/L (15-37) Alanine Aminotransferase (ALT/SGPT) 86 U/L (16-63) Alkaline Phosphatase 59 U/L (46-116) Creatine Kinase 4103 U/L (39-308) Total Protein 6.3 g/dL (6.4-8.2) Albumin 3.1 g/dL (3.4-5.0) Albumin/Globulin Ratio 1.0 (1.0-1.7) Medications Current Medications Acetaminophen (Tylenol) 650 mg PRN Q6HRS PRN PO HEADACHE; Start 01/12/21 at 16:00; Stop 01/12/21 at 16:11; Status DC Ibuprofen (Motrin) 400 mg 1X ONCE PO Last administered on 01/12/21at 16:19; Start 01/12/21 at 16:30; Stop 01/12/21 at 16:31; Status DC Ibuprofen (Motrin) 400 mg 1X ONCE PO Last administered on 01/13/21at 08:39; Start 01/13/21 at 08:45; Stop 01/13/21 at 08:46; Status DC Vitals/I & O Vital Sign - Last 24 Hours 01/12/21 01/12/21 01/12/21 01/12/21 11:36 12:30 15:00 19:00 Temp 97.6 98.3 98.3 97.6 98.3 98.3 Pulse 56 56 68 56 Resp 20 20 20 B/P (MAP) 163/99 (120) 163/99 147/93 (111) 145/83 (103) Pulse Ox 95 100 100 O2 Delivery Room Air Room Air Room Air 01/12/21 01/13/21 01/13/21 01/13/21 23:00 03:00 07:00 08:00 Temp 97.9 97.7 98.8 97.9 97.7 98.8 Pulse 54 51 68 Resp 20 20 20 B/P (MAP) 143/83 (103) 139/84 (102) 148/88 (108) Pulse Ox 98 97 98 O2 Delivery Room Air Room Air Room Air Room Air 01/13/21 01/13/21 01/13/21 08:39 08:39 09:45 Temp Pulse 68 68 Resp B/P (MAP) 148/88 148/88 Pulse Ox O2 Delivery Intake and Output 01/12/21 01/12/21 01/13/21 15:00 23:00 07:00 Intake Total 400 ml 600 ml 800 ml Output Total 1200 ml Balance 400 ml 600 ml -400 ml Justifications for Admission Other Justification ASIF JERRY MD Jan 13, 2021 10:54
--- NOTE | 2021-01-13 11:19 | NUR ---
Discharge Note: JOSEPH ROGERS Discharge instructions and discharge home medications reviewed with Patient and a copy given. All questions have been answered and understanding verbalized. The following instructions and handouts were given: Patient given education regarding new medication and follow up. Discontinued lines and drains: IV removed per protocol. Patient discharged home. Picked up by son.
== END 2021-01-13 11:10 | disposition home or self-care (01) | DRG 683 ==
LOC: ER 07:14 → ED HOLD 09:08 → 5 SOUTH 10:22
PROVIDERS: ADMIT Internal Medicine; ATTEND Internal Medicine
DX: N17.9 Acute kidney failure, unspecified (principal); M62.82 Rhabdomyolysis; E78.5 Hyperlipidemia, unspecified; I12.9 Hypertensive chronic kidney disease with stage 1 through stage 4 chronic kidney disease, or unspecified chronic kidney disease; N18.2 Chronic kidney disease, stage 2 (mild); Z82.49 Family history of ischemic heart disease and other diseases of the circulatory system; K21.9 Gastro-esophageal reflux disease without esophagitis; R74.01 Elevation of levels of liver transaminase levels; R74.8 Abnormal levels of other serum enzymes; R79.89 Other specified abnormal findings of blood chemistry; Z88.0 Allergy status to penicillin; Z85.46 Personal history of malignant neoplasm of prostate
CPT/HCPCS: 36415; 71046; 76705; 80053; 81001; 82550; 85025; 86705; 86709; 86803; 87340; 93005; 96360; 96361; J0360; J7030; 99285-25; G0378